=== PATIENT | male | born 1985 ===

== ENCOUNTER 2024-10-06 04:05 | Emergency (ER) | payer SELFPAY ==
[2024-10-06] MEDS: Lidocaine 1% 5 ML VIAL INJECT ONE (04:49)
[2024-10-06] MEDS: Take Home: Sulfamethoxazole/Trimethoprim 800-160 MG Tab, 6 Tab Pack PO ONE (05:08)
== END 2024-10-06 05:14 | disposition home or self-care (01) ==
LOC: LL.ED 04:05
DX: L02.01 Cutaneous abscess of face (principal); F17.200 Nicotine dependence, unspecified, uncomplicated; Z88.0 Allergy status to penicillin
CPT/HCPCS: 10060; 99283; 99283-25; A9270-GY; J2003